=== PATIENT | female | born 1960 | race Caucasian/White ===

== ENCOUNTER 2017-11-02 16:22 | Emergency (ER) | payer OTHER ==
[~2017-11-02] VITALS: Ht 167.6 cm; Wt 71.3 kg
[~2017-11-02 16:22] MED LIST: ALPRAZOLAM0.5 MG PO; AMBIEN CR12.5 MG PO; CLONAZEPAM2 MG PO; DIAZEPAM5 MG PO; ESCITALOPRAM OX20 MG PO; LAMICTAL25 MG PO; LEVSIN-SL0.125 MG SL; LEXAPRO10 MG PO; PERCOCET 5/31 TABLET PO; PRILOSEC40 MG PO; ZOCOR20 MG PO
[2017-11-02] MEDS ORDERED: LIDODERM 5% P1 PATCH TD (22:43)
[2017-11-02] MEDS ORDERED: INDOCIN25 MG PO (22:44)
[2017-11-02] MEDS ORDERED: VENTOLIN HFA18 GM IH (22:55)
[2017-11-02] MEDS ORDERED: PREDNISONE20 MG PO (22:55)
[2017-11-02 23:21] VITALS: BP 116/59
== END 2017-11-02 23:24 | disposition home or self-care (01) ==
LOC: EME 16:22
DX: S22.31XA Fracture of one rib, right side, initial encounter for closed fracture (principal); S32.10XA Unspecified fracture of sacrum, initial encounter for closed fracture; S32.050A Wedge compression fracture of fifth lumbar vertebra, initial encounter for closed fracture; S60.222A Contusion of left hand, initial encounter; S60.221A Contusion of right hand, initial encounter; S60.511A Abrasion of right hand, initial encounter; J41.0 Simple chronic bronchitis; G89.29 Other chronic pain; M54.2 Cervicalgia; E78.5 Hyperlipidemia, unspecified; F41.9 Anxiety disorder, unspecified; F32.9 Major depressive disorder, single episode, unspecified; F17.200 Nicotine dependence, unspecified, uncomplicated; W10.9XXA Fall (on) (from) unspecified stairs and steps, initial encounter; Y93.01 Activity, walking, marching and hiking; Z88.3 Allergy status to other anti-infective agents
CPT/HCPCS: 71101; 72100; 72220; 73130; 94640; 99281; 99284; J3010; J7512